=== PATIENT | female | born 1950 | race Caucasian/White ===

== ENCOUNTER 2017-05-06 09:42 | Emergency (ER) | payer MEDICARE, BC ==
--- NOTE | 2017-05-06 10:23 | EDM.PDOC ---
ED HPI GENERAL MEDICAL PROBLEM - General Chief Complaint: Respiratory Problem Stated Complaint: SOB Time Seen by Provider: 05/06/17 10:22 Source of Information: Reports: Patient, Family History Limitations: Reports: No Limitations - History of Present Illness INITIAL COMMENTS - FREE TEXT/NARRATIVE: pt arrived with a history of being very sob. Her o2 sats were 68 on arrival. She hs a hoistory of chronic pain. She was so sob during the nite that she felt like she was not going to make it through the nite. Onset: Gradual Duration: Hour(s): Location: Reports: Chest Quality: Reports: Other ( chest feels tight and she is very sob. ) Associated Symptoms: Reports: Cough, Shortness of Breath, Weakness Lower Back/Hip Pain Score (Numeric/FACES): 6 - Related Data Allergies Allergy/AdvReac Type Severity Reaction Status Date / Time No Known Allergies Allergy Verified 05/06/17 10:12 Home Meds: Home Meds Levothyroxine 175 mcg PO ACBREAKFAST 06/14/14 [History] Verapamil HCl [Verapamil] 360 mg PO DAILY 06/14/14 [History] Fluticasone Propionate [Flonase] 2 sprays NS DAILY PRN 01/15/15 [History] Omeprazole [Prilosec] 20 mg PO DAILY 09/23/15 [History] Aspirin [Adult Low Dose Aspirin EC] 81 mg PO DAILY 05/06/17 [History] Ibuprofen [Motrin] 800 mg PO QID PRN 05/06/17 [History] Tamoxifen Citrate 20 mg PO DAILY 05/06/17 [History] Venlafaxine HCl [Venlafaxine ER] 150 mg PO DAILY 05/06/17 [History] Past Medical History HEENT History: Reports: Allergic Rhinitis, Cataract, Impaired Vision Other HEENT History: wear reading glasses Cardiovascular History: Reports: High Cholesterol, Hypertension Other Cardiovascular History: svt takes verapamil Gastrointestinal History: Reports: Bowel Obstruction, Cholelithiasis, Chronic Constipation, Colon Polyp, GERD, Hemorrhoids, Irritable Bowel Syndrome, Other ( See Below) Other Gastrointestinal History: Last BM 2-24 PM Genitourinary History: Reports: Renal Calculus 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: Dysfunctional 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, Musculoskeletal History: Reports: Back Pain, Chronic, Osteoarthritis Endocrine/Metabolic History: Reports: Hypothyroidism Hematologic History: Reports: Blood Transfusion(s) Oncologic (Cancer) History: Reports: Breast, Squamous Cell Carcinoma - Past Surgical History HEENT Surgical History: Reports: Adenoidectomy, Cataract Surgery, Oral Surgery, Tonsillectomy GI Surgical History: Reports: Appendectomy, Cholecystectomy, Colonoscopy, EGD, Hernia, Abdominal, Hernia, Inguinal Female Surgical History: Reports: Breast Biopsy, Hysterectomy, Salpingo- Oophorectomy Endocrine Surgical History: Reports: Thyroid Biopsy, Thyroidectomy Oncologic Surgical History: Reports: Biopsy of Breast, Mastectomy Dermatological Surgical History: Reports: Skin Biopsy Social & Family History - Tobacco Use Smoking Status *Q: Former Smoker Years of Tobacco use: 30 Packs/Tins Daily: 1 Used Tobacco, but Quit: Yes Month Tobacco Last Used: aug Second Hand Smoke Exposure: No - Alcohol Use Days Per Week of Alcohol Use: 2 Number of Drinks Per Day: 2 Total Drinks Per Week: 4 - Recreational Drug Use Recreational Drug Use: No ED ROS GENERAL - Review of Systems Review Of Systems: See Below Constitutional: Reports: No Symptoms, Weakness HEENT: Reports: No Symptoms Respiratory: Reports: Shortness of Breath Cardiovascular: Reports: Palpitations Endocrine: Reports: No Symptoms GI/Abdominal: Reports: No Symptoms : Reports: No Symptoms Musculoskeletal: Reports: No Symptoms Skin: Reports: No Symptoms Neurological: Reports: No Symptoms ED EXAM, GENERAL - Physical Exam Exam: See Below Free Text/Narrative:: pt arrived with marked sob. This has been going on for several days. She was at the pain clinic in [place] yesterday and her o2 sats showed 85. Exam Limited By: No Limitations General Appearance: Alert, Moderate Distress, Other ( O2 sats were 68) Ears: Normal TMs Nose: Normal Inspection Throat/Mouth: Normal Inspection Head: Atraumatic Neck: Normal Inspection Respiratory/Chest: Decreased Breath Sounds, Crackles, Other (pt has very low o2 sats. ) Cardiovascular: Regular Rate, Rhythm GI/Abdominal: Soft, Non-Tender (Female) Exam: Deferred Rectal (Female) Exam: Deferred Back Exam: Normal Inspection Extremities: Normal Inspection Neurological: Alert, Oriented, Normal Cognition Psychiatric: Normal Affect Course - Vital Signs Last Recorded V/S: Last Vital Signs Temp 37.3 C 05/06/17 10:03 Pulse 92 05/06/17 11:16 Resp 20 05/06/17 11:16 BP 112/63 05/06/17 12:20 Pulse Ox 79 L 05/06/17 11:16 - Orders/Labs/Meds Orders: Active Orders 24 hr Category Date Time Status EKG Documentation Completion [RC] ASDIRECTED Care 05/06/17 10:13 Active Iopamidol [Isovue-370 (76%)] Med 05/06/17 11:45 Active 100 ml IV . DIRECTED Sodium Chloride 0.9% [Normal Saline] 100 ml Med 05/06/17 11:45 Active IV ASDIRECTED Sodium Chloride 0.9% [Saline Flush] Med 05/06/17 10:59 Active 10 ml FLUSH ASDIRECTED PRN Saline Lock Insert [OM.PC] Routine Oth 05/06/17 10:59 Ordered EKG 12 Lead [EK] Routine Ther 05/06/17 10:12 Ordered Medication Orders Sodium Chloride (Normal Saline) 100 mls @ 3 mls/sec IV ASDIRECTED CONRADO Last Admin: 05/06/17 11:57 Dose: 3 mls/sec Iopamidol (Isovue-370 (76%)) 100 ml IV . DIRECTED CONRADO Last Admin: 05/06/17 11:57 Dose: 100 ml Sodium Chloride (Saline Flush) 10 ml FLUSH ASDIRECTED PRN PRN Reason: Keep Vein Open Last Admin: 05/06/17 11:59 Dose: 10 ml Admin: 05/06/17 11:37 Dose: 10 ml Labs: Laboratory Tests 05/06/17 05/06/17 05/06/17 Range/Units 10:14 10:30 10:30 WBC 8.9 (4.5-11.0) K/uL RBC 3.36 (3.30-5.50) M/uL Hgb 10.6 L (12.0-15.0) g/dL Hct 30.6 L (36.0-48.0) % MCV 91 (80-98) fL MCH 32 H (27-31) pg MCHC 35 (32-36) % Plt Count 224 (150-400) K/uL Add Manual Diff Yes Neutrophils % (Manual) 76 H (36-66) % Band Neutrophils % 5 (5-11) % Lymphocytes % (Manual) 15 L (24-44) % Monocytes % (Manual) 4 (2-6) % Puncture Site Lt radial ABG pH 7.473 H (7.350-7.450) ABG pCO2 27.9 L (35.0-42.0) mmHg ABG pO2 59.0 L (75.0-100.0) mmHg ABG HCO3 20.2 L (22.0-26.0) mmol/L ABG Total CO2 18.4 L (21.0-25.0) mmol/L ABG O2 Saturation 90.7 L (95.0-98.0) % ABG O2 Content 13.2 L (15.0-23.0) %vol ABG Base Excess -2.1 mm/L ABG Hemoglobin 10.8 L (12.0-16.0) g/dL ABG Oxyhemoglobin 87.3 % ABG Carboxyhemoglobin 2.7 H (0.0-1.6) % ABG Methemoglobin 1.1 % Tony Test Passed O2 Delivery Device Nasal cannula Oxygen Flow Rate L Sodium (140-148) mmol/L Potassium (3.6-5.2) mmol/L Chloride (100-108) mmol/L Carbon Dioxide (21-32) mmol/L Anion Gap (5.0-14.0) mmol/L BUN (7-18) mg/dL Creatinine (0.6-1.0) mg/dL Est Cr Clr Drug Dosing mL/min Estimated GFR (MDRD) (>60) Glucose (74-106) mg/dL Calcium (8.5-10.1) mg/dL Total Bilirubin (0.2-1.0) mg/dL AST (15-37) U/L ALT (12-78) U/L Alkaline Phosphatase (46-116) U/L Troponin I (0.000-0.056) ng/mL C-Reactive Protein 8.81 H (0.0-0.3) mg/dL NT-Pro-B Natriuret Pep (5-125) pg/mL Total Protein (6.4-8.2) g/dL Albumin (3.4-5.0) g/dL Globulin (2.3-3.5) g/dL Albumin/Globulin Ratio (1.2-2.2) Urine Color Urine Appearance Urine pH (4.5-8.0) Ur Specific [place] (1.008-1.030) Urine Protein (NEGATIVE) mg/dL Urine Glucose (UA) (NEGATIVE) mg/dL Urine Ketones (NEGATIVE) mg/dL Urine Occult Blood (NEGATIVE) Urine Nitrite (NEGATIVE) Urine Bilirubin (NEGATIVE) Urine Urobilinogen (NORMAL) mg/dL Ur Leukocyte Esterase (NEGATIVE) Urine RBC (0-5) Urine WBC (0-5) Ur Epithelial Cells Amorphous Sediment Urine Bacteria Urine Mucus 05/06/17 05/06/17 Range/Units 10:30 11:23 WBC (4.5-11.0) K/uL RBC (3.30-5.50) M/uL Hgb (12.0-15.0) g/dL Hct (36.0-48.0) % MCV (80-98) fL MCH (27-31) pg MCHC (32-36) % Plt Count (150-400) K/uL Add Manual Diff Neutrophils % (Manual) (36-66) % Band Neutrophils % (5-11) % Lymphocytes % (Manual) (24-44) % Monocytes % (Manual) (2-6) % Puncture Site ABG pH (7.350-7.450) ABG pCO2 (35.0-42.0) mmHg ABG pO2 (75.0-100.0) mmHg ABG HCO3 (22.0-26.0) mmol/L ABG Total CO2 (21.0-25.0) mmol/L ABG O2 Saturation (95.0-98.0) % ABG O2 Content (15.0-23.0) %vol ABG Base Excess mm/L ABG Hemoglobin (12.0-16.0) g/dL ABG Oxyhemoglobin % ABG Carboxyhemoglobin (0.0-1.6) % ABG Methemoglobin % Tony Test O2 Delivery Device Oxygen Flow Rate L Sodium 125 L (140-148) mmol/L Potassium 3.8 (3.6-5.2) mmol/L Chloride 92 L (100-108) mmol/L Carbon Dioxide 22 (21-32) mmol/L Anion Gap 14.8 H (5.0-14.0) mmol/L BUN 14 (7-18) mg/dL Creatinine 0.9 (0.6-1.0) mg/dL Est Cr Clr Drug Dosing 56.00 mL/min Estimated GFR (MDRD) > 60 (>60) Glucose 147 H (74-106) mg/dL Calcium 8.0 L (8.5-10.1) mg/dL Total Bilirubin 1.0 (0.2-1.0) mg/dL AST 67 H (15-37) U/L ALT 42 (12-78) U/L Alkaline Phosphatase 149 H (46-116) U/L Troponin I 0.036 (0.000-0.056) ng/mL C-Reactive Protein (0.0-0.3) mg/dL NT-Pro-B Natriuret Pep 766 H (5-125) pg/mL Total Protein 6.2 L (6.4-8.2) g/dL Albumin 2.4 L (3.4-5.0) g/dL Globulin 3.8 H (2.3-3.5) g/dL Albumin/Globulin Ratio 0.6 L (1.2-2.2) Urine Color Yellow Urine Appearance Slightly cloudy Urine pH 6.0 (4.5-8.0) Ur Specific [place] 1.015 (1.008-1.030) Urine Protein Negative (NEGATIVE) mg/dL Urine Glucose (UA) Normal (NEGATIVE) mg/dL Urine Ketones Negative (NEGATIVE) mg/dL Urine Occult Blood Negative (NEGATIVE) Urine Nitrite Negative (NEGATIVE) Urine Bilirubin Negative (NEGATIVE) Urine Urobilinogen 1 (NORMAL) mg/dL Ur Leukocyte Esterase Negative (NEGATIVE) Urine RBC 0-5 (0-5) Urine WBC 0-5 (0-5) Ur Epithelial Cells Few Amorphous Sediment Not seen Urine Bacteria Many Urine Mucus Not seen Meds: Medications Generic Name Dose Route Start Last Admin Trade Name Tru PRN Reason Stop Dose Admin Sodium Chloride 100 mls @ 3 mls/sec 05/06/17 11:45 05/06/17 11:57 Normal Saline IV 3 mls/sec ASDIRECTED CONRADO Administration Iopamidol 100 ml 05/06/17 11:45 05/06/17 11:57 Isovue-370 (76%) IV 100 ml . DIRECTED CONRADO Administration Sodium Chloride 10 ml 05/06/17 10:59 05/06/17 11:59 Saline Flush FLUSH 10 ml ASDIRECTED PRN Administration Keep Vein Open Discontinued Medications Generic Name Dose Route Start Last Admin Trade Name Tru PRN Reason Stop Dose Admin Furosemide 60 mg 05/06/17 11:45 05/06/17 12:20 Lasix IVPUSH 05/06/17 11:46 60 mg ONETIME ONE Administration Hydromorphone HCl 0.5 mg 05/06/17 12:01 05/06/17 12:20 Dilaudid IVPUSH 05/06/17 12:02 0.5 mg ONETIME ONE Administration - Re-Assessments/Exams Free Text/Narrative Re-Assessment/Exam: 05/06/17 13:09 pt arrived with O2 sats in the high 60s and she was very labored. She had blood gases which verified these numbers. She did respond to o2 at 3 liters and she came up in the mid 80s. She has no chest pain. She has been sob for several days. Her wbc is not elevated . Her crp is high. Her chest xray revealed a interstial infiltrate involving the left lung and the rt upper lobe. A cat scan was obtained which verified this. Her heart size was not large. Her bnp was over 700. 05/06/17 13:13 Departure - Departure Time of Disposition: 13:25 Disposition: DC/Tfer to Acute Hospital 02 Condition: Fair Clinical Impression: Bilateral pneumonia, Low O2 saturation, Chronic pain - Discharge Information Referrals: Rachid Scherer MD [Primary Care Provider] - Forms: ED Department Discharge Care Plan Goals: transfer to [facility] in [facility]. - My Orders Last 24 Hours: My Active Orders 05/06/17 10:12 EKG 12 Lead [EK] Routine 05/06/17 10:13 EKG Documentation Completion [RC] ASDIRECTED 05/06/17 10:59 Sodium Chloride 0.9% [Saline Flush] 10 ml FLUSH ASDIRECTED PRN Saline Lock Insert [OM.PC] Routine 05/06/17 11:45 Iopamidol [Isovue-370 (76%)] 100 ml IV . DIRECTED Sodium Chloride 0.9% [Normal Saline] 100 ml IV ASDIRECTED - Assessment/Plan Last 24 Hours: My Active Orders 05/06/17 10:12 EKG 12 Lead [EK] Routine 05/06/17 10:13 EKG Documentation Completion [RC] ASDIRECTED 05/06/17 10:59 Sodium Chloride 0.9% [Saline Flush] 10 ml FLUSH ASDIRECTED PRN Saline Lock Insert [OM.PC] Routine 05/06/17 11:45 Iopamidol [Isovue-370 (76%)] 100 ml IV . DIRECTED Sodium Chloride 0.9% [Normal Saline] 100 ml IV ASDIRECTED
--- NOTE | 2017-05-06 11:07 | CR ---
Chest 1V Frontal HISTORY: sob COMPARISON: 09/25/2010 FINDINGS: Heart appears borderline enlarged. There is mild vascular redistribution. Possible intersti tial prominence, particularly on the left. No pleural fluid is seen. Epicardial fat pad is noted at t he right cardiophrenic angle. Right mastectomy changes are noted with surgical clips in the right axi lla. No pulmonary mass is seen. IMPRESSION: Borderline cardiomegaly with slight vascular redistribution and interstitial prominence. Recommend clinical correlation for signs of CHF or fluid overload. I cannot exclude mild inflammatory infiltrates or pneumonitis on the left, however, the relative differences in density of the lungs co uld be artifact due to the right mastectomy changes.
[2017-05-06] MEDS: Sodium Chloride 0.9% 10 ML Syringe FLUSH PRN ×2 (11:37→11:59)
[2017-05-06] MEDS ORDERED: Sodium Chloride 0.9% 100 ML IV SCH (11:45)
[2017-05-06] MEDS ORDERED: Iopamidol 755 Mg/ML 100 ML Bottle IV SCH (11:45)
[2017-05-06] MEDS ORDERED: Furosemide 40 MG/4 ML VIAL IVPUSH ONE (11:45)
[2017-05-06] MEDS ORDERED: HYDROmorphone 0.5 MG/0.5 ML Syringe IVPUSH ONE (12:01)
--- NOTE | 2017-05-06 12:36 | CT ---
Ang Chest HISTORY: sob , very low O2 sats. Axial spiral enhanced pulmonary CT angiography of the chest was obtained along with sagittal, coronal , and MIP reconstructions. FINDINGS: There are fairly diffuse mixed interstitial and alveolar infiltrates throughout most of the left lung. This is slightly less prominent peripherally. Patchy, similar-appearing infiltrates are p resent in the right upper lobe. There is mild dependent atelectasis right lung base. There is good enhancement of the pulmonary arteries bilaterally. No pulmonary embolism is identified. Thoracic aorta is normal in caliber with no aneurysm or dissection. There is scattered atherosclerot ic calcification in the aorta with coronary artery calcification. Heart size appears within normal li mits. I see no hilar or mediastinal mass or adenopathy. There is a minimal amount of right pleural fl uid. There appear to be bilateral mastectomy changes. Is edema in the subcutaneous tissues and skin thicke ileana right anterior to anterolateral chest wall. This could represent postoperative changes or postra diation changes. See no mass or adenopathy. There are surgical clips in the right axilla. Visualized upper abdominal structures are unremarkable. IMPRESSION: 1. Diffuse infiltrate throughout the left lung. There are also patchy infiltrates right upper lobe. A ppearance is nonspecific. Pneumonia or nonspecific pneumonitis could be considered. I cannot exclude a component of pulmonary edema. 2. Negative for pulmonary embolism. 3. Minimal right pleural fluid. 4. Atherosclerotic aorta and coronary artery calcification are noted 5. Skin thickening and soft tissue edema right anterior chest wall may be related to the recent right mastectomy and possibly post radiation changes. No mass or adenopathy is identified. I see no findin gs to suggest metastatic disease. Total DLP 647 mGycm Findings were discussed with Dr. Berkowitz in the emergency department at 1227 hours.
[2017-05-06] MEDS ORDERED: Albuterol 0.083% 2.5 MG/3 ML Neb Soln NEB ONE (13:08)
[2017-05-06 14:16] VITALS: BP 124/57
== END 2017-05-06 15:02 ==
LOC: JP.ED 09:42
DX: J18.9 Pneumonia, unspecified organism (principal); G89.29 Other chronic pain; I10 Essential (primary) hypertension; E78.00 Pure hypercholesterolemia, unspecified; M19.90 Unspecified osteoarthritis, unspecified site; E03.9 Hypothyroidism, unspecified; Z85.828 Personal history of other malignant neoplasm of skin; Z98.49 Cataract extraction status, unspecified eye; Z90.49 Acquired absence of other specified parts of digestive tract; Z90.710 Acquired absence of both cervix and uterus; Z90.721 Acquired absence of ovaries, unilateral; Z87.891 Personal history of nicotine dependence; Z79.899 Other long term (current) drug therapy; Z79.82 Long term (current) use of aspirin
CPT/HCPCS: 36415; 36600; 71010; 71275; 80053; 81001; 82803; 83880; 84484; 85025; 86140; 87040; 93005; 93010; 94640; 96374; 96375; 99285; J1170; J1940; J7030; J7050; Q9967; 99284